=== PATIENT | female | born 1995 | race American Indian/Alaskan Native ===

== ENCOUNTER 2018-02-03 16:20 | Outpatient (CLI) | payer MEDICAID ==
[2018-02-03 17:10] VITALS: BP 131/76
--- NOTE | 2018-02-04 11:27 | Event Note ---
Date: 02/03/18 22 year old at 20 weeks, 3 days gestation presented to L&D triage complaining of brief sharp pelvic pain this morning which lasted for a few seconds, then completely resolved. Pt. states she is no longer having pelvic pain. Pt. denies contractions, vaginal bleeding, or leaking of fluid. Pt. reports she feels movement. Pt. denies falls or abdominal trauma. Pt. reports constipation. She denies diarrhea. She denies urinary symptoms. She denies fever, chills, or malaise. Patient lives in [place] and is visiting here; states she receives care regularly. Patient is well appearing, alert, oriented, NAD. Patient is afebrile and vital signs are stable. Abdomen is soft, nontender; fundus is at umbilicus. FHR 155 bpm with doppler. No contractions palpated or noted per monitor. Most likely round ligament pain. Constipation. at 20 weeks, 3 days gestation. Comfort measures discussed with pt. Advised pt. to increase her intake of fruits and vegetables and drink more water. Advised pt. to obtain OTC Colace and take daily as needed to help with constipation. Advised pt. to follow up with her primary OB[facility] in [place]. Warning signs discussed with patient.
== END 2018-02-03 17:45 | disposition home or self-care (01) ==
LOC: EDSTATUS 16:44 → TRG 17:00
PROVIDERS: ATTEND Obstetrics & Gynecology
DX: O36.8120 Decreased fetal movements, second trimester, not applicable or unspecified (principal); Z3A.21 21 weeks gestation of pregnancy